=== PATIENT | female | born 1965 | race Caucasian/White ===

== ENCOUNTER → 2016-07-23 | Outpatient (CLI) | payer MEDICARE, BC, OTHER ==
[2016-07-23 15:34] LABS: EKG EKG PERFORMED
[2016-07-23 16:23] LABS: Partial Thromboplastin Time 24.1 sec (22.0-30.0); Prothrombin Time 10.2 sec (9.0-12.0)
[2016-07-23 16:24] LABS: ALT 31 U/L (9-52); AST 23 U/L (14-36); Alkaline Phosphatase 90 U/L (38-126); Anion Gap 10 mmol/L; Appearance,Urine Clear (Clear); Bilirubin,Urine Negative (Negative); Blood Urea Nitrogen 15 mg/dL (7-17); Calcium 9.4 mg/dL (8.4-10.2); Carbon Dioxide 27 mmol/L (22-30); Chloride 106 mmol/L (98-107); Glucose 96 mg/dL (74-99); Glucose,Urine (UA) Negative (Negative); Ketones,Urine Negative (Negative); Leukocyte Esterase,Urine Negative (Negative); Mucus,Urine Rare /hpf; Nitrite,Urine Negative (Negative); Non-African American GFR(MDRD) >60 (>60 ml/min/1.73 sqM); PH, Urine 5.5 (5.0-8.0); Particle Count 1393; Potassium 4.4 mmol/L (3.5-5.1); Protein,Urine Negative (Negative); RBC,Urine <1 /hpf (0-5); Sodium 143 mmol/L (137-145); Specific Gravity,Urine 1.017 (1.001-1.035); Squamous Epithelial Cell,Urine 2 /hpf (0-4); Total Bilirubin 0.2 mg/dL (0.2-1.3); Total Protein 7.1 g/dL (6.3-8.2); UA Billing (MACRO vs. MICRO) MICRO; Urobilinogen,Urine <2.0 mg/dL (<2.0); WBC,Urine 1 /hpf (0-5)
[2016-07-23 16:25] LABS: Basophils # (A) 0.1 k/uL (0-0.2); Basophils % (A) 2 %; CH 29.8; CHCM 32.6; Eosinophils # (A) 0.3 k/uL (0-0.7); Eosinophils % (A) 5 %; HCT 40.3 % (34.0-46.0); HDW 2.25; Luc # (Auto) 0.08; Luc % (Auto) 2; Lymphocytes # (A) 1.8 k/uL (1.0-4.8); Lymphocytes % (A) 34 %; MCH 29.5 pg (25.0-35.0); MCHC 32.2 g/dL (31.0-37.0); MCV 91.6 fL (80.0-100.0); Mean Platelet Volume 7.8; Monocytes # (A) 0.3 k/uL (0-1.0); Monocytes % (A) 6 %; Neutrophils # (A) 2.8 k/uL (1.3-7.7); Neutrophils % (A) 52 %; RDW 13.5 % (11.5-15.5); WBC 5.5 k/uL (3.8-10.6); WBC (Perox) 5.37
== END | disposition home or self-care (01) ==
LOC: LABWHC1 15:25
PROVIDERS: ATTEND Orthopaedic Surgery
DX: Z01.810 Encounter for preprocedural cardiovascular examination (principal)
CPT/HCPCS: 36415; 80053; 81001; 85025; 85610; 85730; 93005

== ENCOUNTER 2016-07-26 10:50 | Inpatient (IN) | payer MEDICARE, OTHER ==
[2016-07-16 10:47] VITALS: BMI 29.9
[~2016-07-26 10:50] MED LIST: ACETAMINOPHEN TAB 500 MG TAB PO ONE; FAMOTIDINE 20 MG/2 ML VIAL IV PRN; HYDROmorphone 1 MG/ML 1 ML SYRINGE IVP PRN; LACTATED RINGERS 1,000 ML IV SCH; LIDOCAINE 1% 20 ML VIAL (10MG/ML) FOR IV START INTRADERMA PRN; MELOXICAM 7.5 MG TAB PO ONE; MIDAZOLAM 2 MG/2 ML VIAL IV PRN; ONDANSETRON 4 MG/2 ML VIAL IVP PRN; TRANEXAMIC ACID 1,000 MG in SODIUM CHLORIDE 0.9% 100 ML IVPB ONE
[2016-07-26] MEDS ORDERED: GLYCOPYRROLATE 0.2 MG/ML 2 ML VIAL ONE (12:37)
[2016-07-26] MEDS ORDERED: MIDAZOLAM 2 MG/2 ML VIAL ONE (12:37)
[2016-07-26] MEDS ORDERED: SODIUM CHLORIDE 0.9% IRRIG 3,000 ML BAG IRRIGATION ONE (12:37)
[2016-07-26] MEDS ORDERED: PHENYLEPHRINE-0.9% NACL SYG 1 MG/10 ML SYRINGE ONE (12:37)
[2016-07-26] MEDS ORDERED: ceFAZolin 10 GM VIAL IVPB ONE (12:37)
[2016-07-26] MEDS ORDERED: ESMOLOL 100 MG/10 ML VIAL ONE (12:37)
[2016-07-26] MEDS ORDERED: PROPOFOL 10 MG/ML 20 ML VIAL IV ONE (12:37)
[2016-07-26] MEDS ORDERED: LACTATED RINGERS 1,000 ML BAG IV ONE (12:37)
[2016-07-26] MEDS ORDERED: TRANEXAMIC ACID 1,000 MG/10 ML VIAL ONE (12:37)
[2016-07-26] MEDS ORDERED: fentaNYL (PF) 50 MCG/ML 2 ML AMP ONE (12:37)
[2016-07-26] MEDS ORDERED: ceFAZolin 1,000 MG VIAL ONE (12:37)
[2016-07-26] MEDS ORDERED: ePHEDrine 50 MG/ML 1 ML AMP ONE (12:37)
[2016-07-26] MEDS ORDERED: SODIUM CHLORIDE 0.9% 100 ML BAG ONE ×2 (12:37)
[2016-07-26] MEDS ORDERED: ROPIVACAINE 246.25 MG, EPINEPHrine 0.5 MG, KETOROLAC 30 MG, cloNIDine HCL/PF 80 MCG, WA... MISCELLANE ONE ×5 (12:44)
[2016-07-26] MEDS: ceFAZolin 2 GM in SODIUM CHLORIDE 0.9% 100 ML IVPB ONE ×2 (12:45→18:22)
[2016-07-26] MEDS: ceFAZolin 3,000 MG in SODIUM CHLORIDE 0.9% IRRIGATIO 3,000 ML IRRIGATION ONE ×2 (13:34→18:23)
[2016-07-26] MEDS: LACTATED RINGERS 1,000 ML IV ONE ×2 (13:55→18:23)
[2016-07-26] MEDS ORDERED: HYDROmorphone 1 MG/ML 1 ML SYRINGE IVP PRN ×3 (15:20)
[2016-07-26] MEDS ORDERED: HYDROcodone/APAP 5-325MG 1 EACH TAB PO PRN (15:20)
[2016-07-26] MEDS ORDERED: MAGNESIUM HYDROXIDE 2,400 MG/10 ML CUP PO PRN (15:20)
[2016-07-26] MEDS ORDERED: hydrOXYzine PAMOATE 25 MG CAP PO PRN (15:20)
[2016-07-26] MEDS ORDERED: ACETAMINOPHEN TAB 325 MG TAB PO PRN (15:20)
[2016-07-26] MEDS ORDERED: NA PHOS,M-B/NA PHOS,DI-BA 133 ML ENEMA RECTAL PRN (15:20)
[2016-07-26] MEDS ORDERED: BISACODYL 10 MG SUPP RECTAL PRN (15:20)
[2016-07-26] MEDS ORDERED: NALOXONE 0.4 MG/ML 1 ML VIAL IV PRN (15:20)
[2016-07-26 15:42] VITALS: RESP 16
--- NOTE | 2016-07-26 16:10 | XR ---
EXAMINATION TYPE: XR knee limited RT DATE OF EXAM: 07/26/2016 3:44 PM CLINICAL HISTORY: Right knee pain and arthritis status post total knee replacement. TECHNIQUE: Portable AP and crosstable lateral views of the right knee are obtained immediately posto peratively. COMPARISON: None FINDINGS: Metallic hardware from total right knee arthroplasty is seen and appears satisfactory in a lignment and position. There is evidence of recent surgery with diffuse subcutaneous gas and soft ti ssue swelling drain noted. IMPRESSION: METALLIC HARDWARE FROM TOTAL RIGHT KNEE ARTHROPLASTY IS SATISFACTORY IN ALIGNMENT.
[2016-07-26] MEDS: LACTATED RINGERS 1,000 ML IV SCH ×2 (16:30→22:31)
--- NOTE | 2016-07-26 17:17 | P.OP ---
Date of Procedure: 07/26/16 Procedure(s) Performed: PREOPERATIVE DIAGNOSIS: Right knee severe osteoarthritis with genu varum POSTOPERATIVE DIAGNOSIS: Right knee severe osteoarthritis with genu varum OPERATION: Right knee cemented total replacement arthroplasty. ANESTHESIA: Spinal ESTIMATED BLOOD LOSS: 100 ml. SATELLITE TELEVISION INSTALLER: Elvi Cervantes PA-C (assistance with: patient positioning, retraction, exposure, hemostasis, leg positioning, implantation, irrigation, closure, dressing) COMPLICATIONS: None apparent. COMPONENTS IMPLANTED: Persona system from [employer] INDICATIONS: Ms. Lanier is a 51-year-old female with a history of right knee osteoarthritis. The patient's knee is end-stage, and conservative management has failed. The operation of knee replacement has been discussed at length in the office, as well as potential risks and complications. These are inclusive of, but not limited to: bleeding, infection, scarring, discomfort, blood vessel and nerve damage, need for further surgery, failure to relieve symptoms, persistence, recurrence, or worsening of problems, loosening, dislocation, wear , blood clot, pulmonary embolism, , gait dysfunction, stiffness, and other risks as discussed in the office. The patient elects to proceed and the consent form has been signed. PROCEDURE: The patient was taken to the operating room and positioned on the operating room table in the supine position. Anesthesia was initiated. Care was taken to make sure that all pressure points were adequately padded. The operative lower extremity was prepped and draped in the usual aseptic fashion using ChloraPrep. Ioban drape was used for the case and the patient received intravenous antibiotics within one hour of the incision. A pneumotourniquet and leg guerrero were used for the case. The limb was exsanguinated with an Esmarch bandage and the tourniquet was inflated to 350 mmHg. Time-out was called confirming the patient's identity, side, procedure and administration of antibiotics. The incision was then created midline directly over the knee, carried down through skin and into the subcutaneous tissues and down to fascia. Full thickness subcutaneous medial flap was developed. Medial parapatellar arthrotomy was performed and the interior of the knee was inspected. Significant patella also was noted. There was end-stage osteoarthritis of the knee with a mild to moderate genu varum type deformity. The fat pad was excised and proximal medial release on the tibia was completed using meticulous dissection and a curved osteotome. The anterior cruciate ligament was taken down. Note was made of significant attrition of the anterior and significant degenerative appearance of the posterior cruciate ligaments. The exposure was excellent. The knee was flexed 90 degrees and the patella was everted. A spot was chosen on the femur approximately 1 cm anterior to the posterior cruciate ligament insertion and an intramedullary hole was created within the femur. The intramedullary guide was then set to 5 degrees of valgus. The distal cutting block was attached and pinned into position. An appropriate amount of distal femoral resection was set. The oscillating saw was then used to make the distal femoral cut. This cut was confirmed to be flat with the flat end of an osteotome. The retractors were placed around the tibia and the tibial surface was addressed. The angle and depth of resection was adjusted using an extramedullary cutting guide. The guide had a built-in 3 degree posterior slope cut. Once the cutting guide was adjusted appropriately and in line with the axis of the tibia and confirmed to be in good position in relation to the second metatarsal and transmalleolar axis, the tibial cut was then created with protection of the posterior neurovascular structures and the collateral ligaments. The tibial cut surface was removed and sized. Femoral sizing was then accomplished using anterior referencing. Note was made of small anterior to posterior dimension of the distal femur, which resulted in an abnormally low measurement on anterior referencing.. Care was taken to analyze the posterior condyles for signs of deficiency or severe wear, and adjustments to the guide were made, as appropriate, to prepare for a size 4 component. 3 degree external rotation pins were placed. The cutting jig for the femur was applied to these pins. The planned cuts were further analyzed prior to performing them with the oscillating saw. No femoral notching was produced. Bone fragments were removed and the cut surfaces were finished, as necessary, with a reciprocating saw. Spacer block technique was then used to confirm that the flexion and extension gaps were equal. Soft tissue releases and adjustment of the tibial and/or femoral cuts were made, as necessary, until the gaps were equal. This included release of the posterior cruciate ligament, which was tight in this patient and , if left unreleased, would have resulted in poor kinematics and possibly early loosening. The femur was then further finished for a posterior cruciate ligament substituting component. Patellar resurfacing was performed using a reamer. The size of the required patellar component was estimated and the patellar surface was then reamed down to a residual thickness which would recreate the [place] thickness with the component. The placement of the patellar component was influenced by the degree of patellar subluxation, if any, noted on the preoperative x-rays. Prior to placing trial components, anesthetic solution consisting of ropivicaine with epinephrine, ketorolac, and clonidine was injected carefully and methodically in a grid pattern using aspiration technique into the soft tissue around the knee circumferentially, starting with the deeper tissues first and progressing to fascia, and then finally the skin/subcutaneous tissue. Particular care was taken when injecting the posterior capsule. The trial components were inserted. The tibial tray was allowed to self center and the patella was noted to track very well. The position of the tibial component was marked and the tibia was then finished for a stemmed tibial component. Cement was mixed on the back table and applied to the final components. Trial components were removed and the cut surfaces of the bone were pulse lavaged thoroughly and dried. Cement was then applied to the tibial surface and pressurized into the surface using finger pressurization technique. The tibial component was then applied and excess cement was removed after it was impacted securely and noted to be flush with the cut surface. In similar fashion, the cement was applied to the cut femoral surface, pressurized in using finger pressurization and the component was impacted into place. Excess cement was removed. The polyethylene spacer was then implanted and locked into position. The patellar component was then applied in similar technique and a patellar clamp was used to hold the patella in place as the cement hardened. Once the cement had fully hardened, the knee was reinspected. Any other cement extrusion was removed and final kinematic testing showed range of motion from 0 to 130 degrees with excellent stability, both medially and laterally and appropriate alignment of the leg. Patellar tracking was excellent. The knee was then thoroughly pulse lavaged with normal saline. The tourniquet was deflated and hemostasis was obtained with electrocautery and IV tranexamic acid, 1 g given at the start of the operation and 1 g at the start of closure. Closure was with #2 Ethibond in the fascia/capsule and supplemented with #2 Quill, 2-0 Vicryl suture was used for the subcutaneous tissues and 3-0 Quill for the skin. Dermabond/Steri-Strips were then applied. A lightly compressive dressing was applied using Webril and an Bassem wrap. The patient was then transferred to [facility] and taken to the recovery room in stable condition. Sponge and needle counts were correct.
[2016-07-26] MEDS: ARIPiprazole 10 MG TAB PO SCH (20:17)
[2016-07-26] MEDS: ceFAZolin 2 GM in SODIUM CHLORIDE 0.9% 100 ML IVPB SCH (20:17)
[2016-07-26] MEDS: ASPIRIN 325 MG TAB PO SCH (20:18)
[2016-07-26] MEDS: SENNOSIDES-DOCUSATE SODIUM 1 EACH TAB PO SCH (20:18)
[2016-07-26] MEDS ORDERED: TEMAZEPAM 15 MG CAP PO PRN (22:00)
[2016-07-27] MEDS: ceFAZolin 2 GM in SODIUM CHLORIDE 0.9% 100 ML IVPB SCH (03:27)
[2016-07-27] MEDS: HYDROcodone/APAP 5-325MG 1 EACH TAB PO PRN ×2 (03:53→13:35)
[2016-07-27 08:34] LABS: Basophils % (A) 1 %; CH 29.7; CHCM 32.7; Eosinophils # (A) 0.1 k/uL (0-0.7); Eosinophils % (A) 2 %; HCT 34.1 % (34.0-46.0); HDW 2.28; HGB 10.8 gm/dL (11.4-16.0); Luc # (Auto) 0.08; Luc % (Auto) 1; Lymphocytes # (A) 1.4 k/uL (1.0-4.8); Lymphocytes % (A) 17 %; MCH 28.9 pg (25.0-35.0); MCHC 31.7 g/dL (31.0-37.0); MCV 91.2 fL (80.0-100.0); Mean Platelet Volume 7.9; Monocytes # (A) 0.4 k/uL (0-1.0); Monocytes % (A) 5 %; Neutrophils # (A) 6.2 k/uL (1.3-7.7); Neutrophils % (A) 75 %; RBC 3.75 m/uL (3.80-5.40); RDW 13.9 % (11.5-15.5); WBC 8.3 k/uL (3.8-10.6); WBC (Perox) 8.55
[2016-07-27] MEDS: ONDANSETRON 4 MG/2 ML VIAL IVP PRN (08:34)
[2016-07-27] MEDS: MELOXICAM 7.5 MG TAB PO SCH (09:31)
[2016-07-27] MEDS: ASPIRIN 325 MG TAB PO SCH ×2 (09:31→21:06)
[2016-07-27] MEDS: MULTIVITAMINS, THERA 1 EACH TAB PO SCH (09:31)
--- NOTE | 2016-07-27 09:56 | P.PN ---
Subjective Principal diagnosis: Status post right total knee arthroplasty This is a 51 year-old female post right total knee arthroplasty. This is post- op day 1. The patient was evaluated in the recliner chair at the bedside today. There is a communication barrier due to the patient being deaf. No process assistant at the bedside at this time. Objective - Vital Signs Vital signs: Vital Signs Temp 98.9 F 07/27/16 07:35 Pulse 81 07/27/16 09:35 Resp 16 07/27/16 07:35 BP 94/56 07/27/16 09:35 Pulse Ox 95 07/27/16 07:35 Intake & Output 07/26/16 07/27/16 07/27/16 18:59 06:59 18:59 Intake Total 2052 240 Output Total 250 2450 150 Balance 1802 -2450 90 Intake: IV 1452 Oral 600 240 Output: Urine 150 2450 150 Uretheral (Schmidt) 2450 150 Estimated Blood Loss 100 Other: Voiding Method Indwelling Catheter Indwelling Catheter - Exam The patient does not appear in acute distress. Alert and orientated x3. Dressing is clean dry and intact. Incision appears fine with no erythema or active drainage. Calf is soft and nontender. Good foot and ankle motion without difficulty. Sensation and circulatory status is intact. - Labs CBC & Chem 7: 07/27/16 07:55 Labs: Abnormal Lab Results - Last 24 Hours (Table) 07/27/16 Range/Units 07:55 RBC 3.75 L (3.80-5.40) m/uL Hgb 10.8 L (11.4-16.0) gm/dL Assessment and Plan (1) Primary osteoarthritis of right knee Status: Acute (2) Status post right knee replacement Status: Acute Plan: 1. Continue pain control 2. Anticoagulation with Aspirin 3. Continue physical therapy and ambulation 4. Anticipate discharge home with homecare in the next 1-2 days.
[2016-07-27] MEDS: LACTATED RINGERS 1,000 ML IV SCH (14:51)
--- NOTE | 2016-07-27 18:01 | CONS ---
DATE OF CONSULTATION: REASON FOR CONSULTATION: Postoperative hypotension management. Patient is a 51-year-old female admitted for right knee elective arthroplasty for genu varum deformity and osteoarthritis. Patient is clinically doing well. Patient is mildly hypotensive. Denied any lightheadedness. Denied any shortness of breath, fever, chills. Patient is mildly tachycardic because of the intravascular volume depletion from surgery and fluid shift from the surgery as well as pain medications. Patient did not pass gas yet. REVIEW OF SYSTEMS: CONSTITUTIONAL: No fever, no malaise, no fatigue. HEENT: No recent visual problems or hearing problems. Denied any sore throat. CARDIOVASCULAR: No chest pain, orthopnea, PND, no palpitations, no syncope. PULMONARY: No shortness of breath, no cough, no hemoptysis. GASTROINTESTINAL: No diarrhea, no nausea, no vomiting, no abdominal pain. Normoactive bowel sounds. NEUROLOGICAL: No headaches, no weakness, no numbness. HEMATOLOGICAL: Denies any bleeding or petechiae. GENITOURINARY: Denies any burning micturition, frequency, or urgency. MUSCULOSKELETAL/RHEUMATOLOGICAL: Denies any joint pain, swelling, or any muscle pain. ENDOCRINE: Denies any polyuria or polydipsia. The rest of the 14 point review of systems is negative. PAST MEDICAL HISTORY: 1. Deaf mutism. 2. Osteoarthritis. 3. Tubal ligation surgery. 4. Orthopedic surgery. SOCIAL HISTORY: Denied any smoking, alcohol abuse or any drug abuse. FAMILY HISTORY: Significant for congestive heart failure and osteoarthritis. Home medications include: 1. Abilify. 2. Aspirin. 3. Senna. PHYSICAL EXAMINATION: VITAL SIGNS: Temperature 98.8, pulse of 68, respiratory rate of 16. Blood pressure is 99/50. GENERAL: The patient is alert and oriented x3, not in any acute distress. Well developed, well nourished. HEENT: Pupils are round and equally reacting to light. EOMI. No scleral icterus. No conjunctival pallor. Normocephalic, atraumatic. No pharyngeal erythema. No thyromegaly. CARDIOVASCULAR: S1 and S2 present. No murmurs, rubs, or gallops. PULMONARY: Chest is clear to auscultation, no wheezing or crackles. ABDOMEN: Soft, nontender, nondistended, normoactive bowel sounds. No palpable organomegaly. MUSCULOSKELETAL: Defer to Orthopedic Surgery. EXTREMITIES: No cyanosis, clubbing, or pedal edema. NEUROLOGICAL: Gross neurological examination did not reveal any focal deficits. SKIN: No rashes. ASSESSMENT AND PLAN: 1. Postoperative hypotension secondary to pain medications and blood loss from surgery. Patient is on 100 mL of lactated Ringer's, which is appropriate. 2. Tachycardia due to above-mentioned reasons. 3. Depression. Continue with Abilify. 4. Right knee arthroplasty. DVT and pain management as per primary service. Thank you for letting me participate in this patient's care. Will continue to follow the patient with you. Patient's primary care physician is Dr. Jing Goode.
[2016-07-27] MEDS: SENNOSIDES-DOCUSATE SODIUM 1 EACH TAB PO SCH (21:06)
[2016-07-27] MEDS: ARIPiprazole 10 MG TAB PO SCH (21:06)
[2016-07-28] MEDS: HYDROcodone/APAP 5-325MG 1 EACH TAB PO PRN ×2 (00:23→07:21)
[2016-07-28] MEDS: ONDANSETRON 4 MG/2 ML VIAL IVP PRN (03:26)
[2016-07-28] MEDS: LACTATED RINGERS 1,000 ML IV SCH ×2 (03:40→09:46)
[2016-07-28 07:30] VITALS: BP 109/58; PULSE 95; TEMP 98.9
--- NOTE | 2016-07-28 08:36 | P.DS ---
Providers Date of admission: 07/26/16 10:50 Expected date of discharge: 07/28/16 Attending physician: Bruno Stubbs Consults: 07/26/16 15:20 Consult Physician Routine Consulting Provider: Jennyfer Schroeder Consult Reason/Comments: medical management Do you want consulting provider notified?: Yes Primary care physician: Jing Goode - Discharge Diagnosis(es) (1) Primary osteoarthritis of right knee Current Visit: Yes Status: Acute (2) Status post right knee replacement Current Visit: Yes Status: Acute Hospital Course: This is a 51-year-old female who was last seen with complaint of continued right knee pain. The patient has a known history of degenerative arthritis of the right knee and presents to discuss surgical options. After discussion and consideration the patient elects to proceed with total right knee arthroplasty. The patient is seen preoperatively by Dr. Goode and cleared for surgery. The patient is admitted to [facility] for total right knee arthroplasty. The procedures performed without complication or sequelae. Patient is doing well postoperatively. She does have increased swelling on postoperative day #2 with a small blister about the lateral aspect of the knee. There is minimal drainage from the incision. Vital signs are stable at discharge. Labs are stable at discharge. the patient is ambulating well with walker with minimal assistance. Venous Doppler is ordered to rule out DVT. If the Doppler is negative she may be discharged to home today. The patient is discharged to home on postop day #2 pending medical clearance. Please see orders and refer to the med rec for accurate list of medications. Plan - Discharge Summary New Discharge Prescriptions: Aspirin 325 mg PO BID #120 HYDROcodone/APAP 5-325MG [[place] 5] 1 - 2 each PO Q4-6H PRN #60 tab PRN Reason: Pain Sennosides-Docusate Sodium [Senokot-S] 1 tab PO BID #60 tablet Discharge Medication List ARIPiprazole [Abilify] 10 mg PO HS 07/26/16 [History] Aspirin 325 mg PO BID #120 07/26/16 [Rx] HYDROcodone/APAP 5-325MG [[place] 5] 1 - 2 each PO Q4-6H PRN #60 tab 07/26/16 [Rx] Sennosides-Docusate Sodium [Senokot-S] 1 tab PO BID #60 tablet 07/26/16 [Rx] Follow up Appointment(s)/Referral(s): Bruno Stubbs MD [STAFF PHYSICIAN] - 2 Weeks Activity/Diet/Wound Care/Special Instructions: Walker - CPM - Keep compressive bandage on for the next 24 hours. May shower if no drainage from incision. CPM 5-6h daily. WBAT w walker Discharge Disposition: HOME WITH HOME HEALTH SERVICES
[2016-07-28] MEDS: ASPIRIN 325 MG TAB PO SCH (08:46)
[2016-07-28] MEDS: MELOXICAM 7.5 MG TAB PO SCH (08:47)
[2016-07-28] MEDS: MULTIVITAMINS, THERA 1 EACH TAB PO SCH (08:47)
--- NOTE | 2016-07-28 09:29 | US ---
EXAMINATION TYPE: US venous doppler duplex LE RT DATE OF EXAM: 07/28/2016 9:14 AM COMPARISON: NONE CLINICAL HISTORY: Right total knee x 2 days, no h/o dvt. SIDE PERFORMED: Right VESSELS IMAGED: External Iliac Vein (EIV) Common Femoral Vein Deep Femoral Vein Greater Saphenous Vein * Femoral Vein Popliteal Vein - unable to do compression due to hard, swollen knee and patient was having difficulty with pressure behind the knee Small Saphenous Vein * Proximal Calf Veins (* superficial vessels) Right Leg: Appears negative for DVT IMPRESSION: 1. No evidence of DVT.
== END 2016-07-28 13:52 | disposition home health service (06) | DRG 470 ==
LOC: 2ORMAIN 10:50 → 3SUR 15:36
PROVIDERS: ADMIT Orthopaedic Surgery; ATTEND Orthopaedic Surgery
PROC: 0SRC0J9 Replacement of Right Knee Joint with Synthetic Substitute, Cemented, Open Approach (ICD-10-PCS; principal; 2016-07-26 12:30)
DX: M17.11 Unilateral primary osteoarthritis, right knee (principal); I95.9 Hypotension, unspecified; F32.9 Major depressive disorder, single episode, unspecified; H91.3 Deaf nonspeaking, not elsewhere classified; E86.9 Volume depletion, unspecified; M21.161 Varus deformity, not elsewhere classified, right knee; Z82.49 Family history of ischemic heart disease and other diseases of the circulatory system; Z79.82 Long term (current) use of aspirin; Z79.899 Other long term (current) drug therapy
CPT/HCPCS: 36415; 80053; 81001; 85025; 85610; 85730; 88300; 93005

== ENCOUNTER 2017-07-05 17:07 | Emergency (ER) | payer MEDICARE, OTHER ==
[2017-07-05 17:29] VITALS: RESP 18; TEMP 97.6
[2017-07-05] MEDS ORDERED: IPRATROPIUM-ALBUTEROL 3 ML NEB INHALATION STA (18:40)
--- NOTE | 2017-07-05 18:44 | ED ---
General Adult HPI - General Chief complaint: Upper Respiratory Infection Stated complaint: Cough Time Seen by Provider: 07/05/17 18:31 Source: family, RN notes reviewed Mode of arrival: ambulatory Limitations: language barrier - History of Present Illness Initial comments: This is a 52-year-old female who presents to the emergency department with chief complaint of cough. Patient is unable to hear or speak. Patient is able to read and write. She is accompanied by her sister who is also her caregiver. Her sister states that patient does not have a history of COPD but had asthma years ago. She denies any heart disease. She states that for the past month patient has been having intermittent productive cough and congestion. She states that over the past couple of days the cough has gotten worse. She states that patient has been coughing up yellow sputum. Patient's sister also states that she has been complaining of a sore throat. Denies chest pain, shortness of breath, fever or chills, abdominal pain, nausea or vomiting, diarrhea or constipation, urinary symptoms. - Related Data Home Medications Medication Instructions Recorded Confirmed ARIPiprazole [Abilify] 10 mg PO HS 07/26/16 07/26/16 Previous Rx's Medication Instructions Recorded Aspirin 325 mg PO BID #120 07/26/16 HYDROcodone/APAP 5-325MG [[place] 5] 1 - 2 each PO Q4-6H PRN #60 tab 07/26/16 Sennosides-Docusate Sodium 1 tab PO BID #60 tablet 07/26/16 [Senokot-S] Albuterol Inhaler [Ventolin Hfa 1 - 2 puff INHALATION Q6HR 7 Days 07/05/17 Inhaler] #1 inhaler Azithromycin [Zithromax Z-pack] 0 mg PO DIRECTED #6 tab 07/05/17 Allergies Allergy/AdvReac Type Severity Reaction Status Date / Time No Known Allergies Allergy Verified 07/05/17 17:29 Review of Systems ROS Statement: Those systems with pertinent positive or pertinent negative responses have been documented in the HPI. ROS Other: All systems not noted in ROS Statement are negative. Past Medical History Past Medical History: Hearing Disorder / Deafness, Osteoarthritis (OA) History of Any Multi-Drug Resistant Organisms: None Reported Past Surgical History: Orthopedic Surgery, Tubal Ligation Additional Past Surgical History / Comment(s): RT LEG SX CHILD. RT KNEE SCOPE, 07-26-16 TOTAL RT KNEE Past Anesthesia/Blood Transfusion Reactions: No Reported Reaction Past Psychological History: Depression Smoking Status: Never smoker Past Alcohol Use History: None Reported Past Drug Use History: None Reported - Past Family History Mother Family Medical History: No Reported History, Congestive Heart Failure (CHF), Osteoarthritis (OA) Father Family Medical History: Congestive Heart Failure (CHF) General Exam - General Exam Comments Initial Comments: General: Awake and alert, well-developed; in no apparent distress. Pleasant and cooperative. HEENT: Head atraumatic, normocephalic. Pupils are equal, round and reactive to light. Extraocular movements intact. Oropharynx moist without erythema or exudate. Neck: Supple. Normal ROM. Cardiovascular: Regular rate and rhythm. No murmurs, rubs or gallops. Chest symmetrical. Respiratory: Diffuse wheezing throughout all lung smith. No rales or rhonchi. Normal respiratory effort with no use of accessory muscles. Abdomen: Soft, non-tender, non-distended. No rigidity, rebound or guarding. Normal bowel sounds in all 4 quadrants. Musculoskeletal: Normal ROM, no tenderness bilateral upper and lower extremities. No pedal edema. Skin: [place], warm and dry without rashes or lesions. Neurological: Alert and oriented x3. CN II-XII grossly intact. No focal neuro deficits. Psychiatric: Normal mood and affect. No overt signs of depression or anxiety noted. Limitations: language barrier Course Vital Signs 07/05/17 07/05/17 07/05/17 17:25 19:00 19:08 Temperature 97.6 F Pulse Rate 83 70 63 Respiratory 18 18 Rate Blood Pressure 141/68 110/57 O2 Sat by Pulse 97 100 Oximetry 07/05/17 19:14 Temperature Pulse Rate 68 Respiratory Rate Blood Pressure O2 Sat by Pulse Oximetry Medical Decision Making - Medical Decision Making This is a 52-year-old female who presents to the emergency department with chief complaint of cough. Chest x-ray revealed peribronchial cuffing suggestive of reactive airway disease from acute asthma exacerbation. On examination, patient had diffuse wheezing throughout all lung smith. While in the emergency Department patient received a breathing treatment. CBC and CMP were within normal limits. Patient will be discharged home with prescriptions for azithromycin and an albuterol inhaler. Patient's transportation dispatch manager was informed of findings and plan. She is in agreement moist understanding. All questions were answered. - Lab Data Result diagrams: 07/05/17 19:26 07/05/17 19:26 Lab Results 07/05/17 07/05/17 Range/Units 19:26 19:26 WBC 7.7 (3.8-10.6) k/uL RBC 4.71 (3.80-5.40) m/uL Hgb 13.5 (11.4-16.0) gm/dL Hct 40.9 (34.0-46.0) % MCV 87.0 (80.0-100.0) fL MCH 28.8 (25.0-35.0) pg MCHC 33.1 (31.0-37.0) g/dL RDW 13.1 (11.5-15.5) % Plt Count 240 (150-450) k/uL Neutrophils % 44 % Lymphocytes % 43 % Monocytes % 4 % Eosinophils % 7 % Basophils % 1 % Neutrophils # 3.4 (1.3-7.7) k/uL Lymphocytes # 3.3 (1.0-4.8) k/uL Monocytes # 0.3 (0-1.0) k/uL Eosinophils # 0.5 (0-0.7) k/uL Basophils # 0.1 (0-0.2) k/uL Sodium 142 (137-145) mmol/L Potassium 4.1 (3.5-5.1) mmol/L Chloride 105 (98-107) mmol/L Carbon Dioxide 26 (22-30) mmol/L Anion Gap 11 mmol/L BUN 14 (7-17) mg/dL Creatinine 0.80 (0.52-1.04) mg/dL Est GFR (MDRD) Af Amer >60 (>60 ml/min/1.73 sqM) Est GFR (MDRD) Non-Af >60 (>60 ml/min/1.73 sqM) Glucose 90 (74-99) mg/dL Calcium 9.7 (8.4-10.2) mg/dL Total Bilirubin 0.3 (0.2-1.3) mg/dL AST 26 (14-36) U/L ALT 38 (9-52) U/L Alkaline Phosphatase 101 (38-126) U/L Total Protein 7.1 (6.3-8.2) g/dL Albumin 3.9 (3.5-5.0) g/dL - Radiology Data Radiology results: report reviewed Chest x-ray impression: No suspicious peripheral airspace opacity. Poor inspiration with central perihilar peribronchial cuffing is suggestive of reactive airway disease possibly from acute asthma exacerbation, correlate clinically. Disposition Clinical Impression: Asthmatic bronchitis Disposition: HOME SELF-CARE Condition: Good Instructions: Asthma (ED), Acute Bronchitis (ED) Additional Instructions: Please take medications as prescribed. Please follow up with primary care provider within 1-2 days. Return to emergency department if symptoms should worsen or any concerns arise. Prescriptions: Albuterol Inhaler [Ventolin Hfa Inhaler] 1 - 2 puff INHALATION Q6HR 7 Days #1 inhaler Azithromycin [Zithromax Z-pack] 0 mg PO DIRECTED #6 tab Referrals: Jing Goode MD [Primary Care Provider] - 1-2 days Time of Disposition: 19:59
--- NOTE | 2017-07-05 18:56 | XR ---
EXAMINATION TYPE: XR chest 2V DATE OF EXAM: 07/05/2017 COMPARISON: NONE HISTORY: Cough and wheeze TECHNIQUE: Frontal and lateral views of the chest are obtained. FINDINGS: For inspiration is present. There is no focal air space opacity, pleural effusion, or pneu mothorax seen. There is central perihilar peribronchial cuffing The cardiac silhouette size is within normal limits. The osseous structures are intact. IMPRESSION: No suspicious peripheral airspace opacity. Poor inspiration with central perihilar perib ronchial cuffing is suggestive of reactive airway disease possibly from acute asthma exacerbation, co rrelate clinically.
[2017-07-05 19:09] VITALS: BP 110/57
[2017-07-05 19:15] VITALS: PULSE 68
[2017-07-05 19:40] LABS: Basophils # (A) 0.1 k/uL (0-0.2); Basophils % (A) 1 %; CH 29.6; CHCM 34.2; Eosinophils # (A) 0.5 k/uL (0-0.7); Eosinophils % (A) 7 %; HCT 40.9 % (34.0-46.0); HDW 2.35; HGB 13.5 gm/dL (11.4-16.0); Luc # (Auto) 0.14; Luc % (Auto) 2; Lymphocytes # (A) 3.3 k/uL (1.0-4.8); Lymphocytes % (A) 43 %; MCH 28.8 pg (25.0-35.0); MCHC 33.1 g/dL (31.0-37.0); Mean Platelet Volume 7.1; Monocytes # (A) 0.3 k/uL (0-1.0); Monocytes % (A) 4 %; Neutrophils # (A) 3.4 k/uL (1.3-7.7); Neutrophils % (A) 44 %; RBC 4.71 m/uL (3.80-5.40); RDW 13.1 % (11.5-15.5); WBC 7.7 k/uL (3.8-10.6)
[2017-07-05 19:51] LABS: ALT 38 U/L (9-52); AST 26 U/L (14-36); Alkaline Phosphatase 101 U/L (38-126); Anion Gap 11 mmol/L; Blood Urea Nitrogen 14 mg/dL (7-17); Calcium 9.7 mg/dL (8.4-10.2); Carbon Dioxide 26 mmol/L (22-30); Chloride 105 mmol/L (98-107); Glucose 90 mg/dL (74-99); Non-African American GFR(MDRD) >60 (>60 ml/min/1.73 sqM); Potassium 4.1 mmol/L (3.5-5.1); Sodium 142 mmol/L (137-145); Total Bilirubin 0.3 mg/dL (0.2-1.3); Total Protein 7.1 g/dL (6.3-8.2)
== END 2017-07-05 20:06 | disposition home or self-care (01) ==
LOC: EC 17:07
DX: J45.909 Unspecified asthma, uncomplicated (principal); H91.90 Unspecified hearing loss, unspecified ear; F32.9 Major depressive disorder, single episode, unspecified; Z79.899 Other long term (current) drug therapy
CPT/HCPCS: 36415; 71020; 80053; 85025; 94640; 99284

== ENCOUNTER → 2018-11-20 | Outpatient (CLI) | payer MEDICARE, OTHER ==
--- NOTE | 2018-11-21 14:22 | MM ---
Reason for exam: screening (asymptomatic). Last mammogram was performed 4 years and 5 months ago. Physical Findings: A clinical breast exam by your physician is recommended on an annual basis and results should be correlated with mammographic findings. MG 3D Screening Mammo W/Cad Bilateral CC and MLO view(s) were taken. Prior study comparison: July 03, 2014, bilateral MG screening mammo w CAD. August 07, 2012, bilateral digital screening mammo w/CAD. The breast tissue is heterogeneously dense. This may lower the sensitivity of mammography. No significant changes when compared with prior studies. ASSESSMENT: Benign, BI-RAD 2 RECOMMENDATION: Routine screening mammogram of both breasts in 1 year.
== END | disposition home or self-care (01) ==
LOC: RADMAMWWP 10:46
PROVIDERS: ATTEND Internal Medicine
DX: Z12.31 Encounter for screening mammogram for malignant neoplasm of breast (principal)
CPT/HCPCS: 77063; 77067

== ENCOUNTER 2019-09-07 11:14 | Emergency (ER) | payer MEDICARE, OTHER ==
[2019-09-07] MEDS ORDERED: ACETAMINOPHEN TAB 500 MG TAB PO STA (11:24)
[2019-09-07] MEDS ORDERED: IPRATROPIUM-ALBUTEROL 3 ML NEB INHALATION STA (11:25)
[2019-09-07] MEDS ORDERED: IBUPROFEN 600 MG TAB PO STA (11:44)
--- NOTE | 2019-09-07 11:48 | ED ---
URI HPI - General Stated Complaint: cough, vomiting Time Seen by Provider: 09/07/19 11:18 Source: patient, RN notes reviewed Mode of arrival: ambulatory Limitations: language barrier - History of Present Illness Initial Comments: This a 54-year-old female presents emergency Department with sister chief complaint of cough congestion fever. Symptoms started over the last 24 hours. Patient has no significant past medical history. Patient information is limited at this time given that she is deaf and uses sign language. Patient's sister is helping with interpretation until temperature arise. Patient denies chest pain, abdominal pain, headache, neck stiffness. She did have an episode of posttussis emesis but has no complaints of current nausea or vomiting. Patient has not taken Tylenol Motrin no significant lung history. Patient noted have some wheezing. - Related Data Home Medications Medication Instructions Recorded Confirmed ARIPiprazole [Abilify] 10 mg PO HS 07/26/16 07/26/16 Previous Rx's Medication Instructions Recorded Aspirin 325 mg PO BID #120 07/26/16 HYDROcodone/APAP 5-325MG [[place] 5] 1 - 2 each PO Q4-6H PRN #60 tab 07/26/16 Sennosides-Docusate Sodium 1 tab PO BID #60 tablet 07/26/16 [Senokot-S] Albuterol Inhaler [Ventolin Hfa 1 - 2 puff INHALATION Q6HR 7 Days 07/05/17 Inhaler] #1 inhaler Azithromycin [Zithromax Z-pack] 0 mg PO DIRECTED #6 tab 07/05/17 Albuterol Sulfate [Proair Hfa] 1 - 2 puff INHALATION Q4HR PRN #1 09/07/19 inhaler Oseltamivir [Tamiflu] 75 mg PO Q12HR #10 cap 09/07/19 predniSONE 50 mg PO DAILY #5 tab 09/07/19 Allergies Allergy/AdvReac Type Severity Reaction Status Date / Time No Known Allergies Allergy Verified 09/07/19 11:28 Review of Systems ROS Statement: Those systems with pertinent positive or pertinent negative responses have been documented in the HPI. ROS Other: All systems not noted in ROS Statement are negative. Past Medical History Past Medical History: Hearing Disorder / Deafness, Osteoarthritis (OA) History of Any Multi-Drug Resistant Organisms: None Reported Past Surgical History: Orthopedic Surgery, Tubal Ligation Additional Past Surgical History / Comment(s): RT LEG SX CHILD. RT KNEE SCOPE, 07-26-16 TOTAL RT KNEE Past Anesthesia/Blood Transfusion Reactions: No Reported Reaction Past Psychological History: Depression Smoking Status: Never smoker Past Alcohol Use History: None Reported Past Drug Use History: None Reported - Past Family History Mother Family Medical History: No Reported History, Congestive Heart Failure (CHF), Osteoarthritis (OA) Father Family Medical History: Congestive Heart Failure (CHF) General Exam Limitations: language barrier General appearance: alert, in no apparent distress Head exam: Present: atraumatic, normocephalic, normal inspection Eye exam: Present: normal appearance, PERRL, EOMI. Absent: scleral icterus, conjunctival injection, periorbital swelling ENT exam: Present: normal exam, normal oropharynx, mucous membranes moist Neck exam: Present: normal inspection, full ROM. Absent: tenderness, meningismus, lymphadenopathy Respiratory exam: Present: wheezes. Absent: normal lung sounds bilaterally, respiratory distress, rales, rhonchi, stridor Cardiovascular Exam: Present: normal rhythm, tachycardia, normal heart sounds. Absent: systolic murmur, diastolic murmur, rubs, gallop, clicks Neurological exam: Present: alert, oriented X3, CN II-XII intact Skin exam: Present: warm, dry, intact, normal color. Absent: rash Course Vital Signs 09/07/19 09/07/19 09/07/19 11:25 11:49 12:05 Temperature 102.7 F H Pulse Rate 114 H 112 H 108 H Respiratory 28 H 20 Rate Blood Pressure 131/87 O2 Sat by Pulse 98 Oximetry 09/07/19 13:01 Temperature 100.9 F H Pulse Rate 120 H Respiratory 16 Rate Blood Pressure 107/57 O2 Sat by Pulse 94 L Oximetry - Reevaluation(s) Reevaluation #1: 09/07/19 13:04 Patient updated on results. Patient states she feels dramatically improved at this time. Medical Decision Making - Medical Decision Making 54-year-old female presented for cough congestion fever. Patient chest x-ray is unremarkable. Patient did have some mild wheezing which is resolved after breathing treatment. Patient clinically has influenza though she is negative at this time. I did discuss bloodwork patient declines states that she is feeling improved. We'll attempt treatment with Tamiflu, prednisone and Proventil inhaler. Strict return parameters were discussed. - Lab Data Lab Results 09/07/19 Range/Units 11:35 Influenza Type A RNA Not Detected (Not Detectd) Influenza Type B (PCR) Not Detected (Not Detectd) Disposition Clinical Impression: Influenza, Upper respiratory tract infection Disposition: HOME SELF-CARE Condition: Stable Instructions (If sedation given, give patient instructions): Upper Respiratory Infection (ED) Additional Instructions: Please return to the Emergency Department if symptoms worsen or any other concerns. Alternate Tylenol Motrin for fever control. Prescriptions: predniSONE 50 mg PO DAILY #5 tab Albuterol Sulfate [Proair Hfa] 1 - 2 puff INHALATION Q4HR PRN #1 inhaler PRN Reason: difficulty in breathing Oseltamivir [Tamiflu] 75 mg PO Q12HR #10 cap Is patient prescribed a controlled substance at d/c from ED?: No Referrals: Jing Godoe MD [Primary Care Provider] - 1-2 days Time of Disposition: 13:05
--- NOTE | 2019-09-07 11:50 | XR ---
EXAMINATION TYPE: XR chest 2V DATE OF EXAM: 09/07/2019 COMPARISON: Prior chest x-ray 07/05/2017 HISTORY: Fever, cough TECHNIQUE: Frontal and lateral views of the chest are obtained. FINDINGS: Lung volumes are low. Right hemidiaphragm remains elevated. There is bronchial wall thicken ing. Correlate for bronchitis, reactive airways disease. There is thoracic spondylosis. Heart size is stable. No pneumothorax or pleural effusion. No evident airspace disease. IMPRESSION: No acute cardiopulmonary process.
[2019-09-07 13:02] VITALS: BP 107/57; PULSE 120; RESP 16; TEMP 100.9
== END 2019-09-07 13:36 | disposition home or self-care (01) ==
LOC: EC 11:14
DX: J11.1 Influenza due to unidentified influenza virus with other respiratory manifestations (principal); F32.9 Major depressive disorder, single episode, unspecified; Z79.899 Other long term (current) drug therapy
CPT/HCPCS: 71046; 87502; 94640; 99284

== ENCOUNTER → 2021-03-19 | Outpatient (CLI) | payer MEDICARE, OTHER | END | disposition home or self-care (01) | LOC: LABWHC1 14:00 | PROVIDERS: ATTEND Internal Medicine | DX: Z20.822 Contact with and (suspected) exposure to COVID-19 (principal); R05 Cough | CPT/HCPCS: U0003; C9803; U0005 ==

== ENCOUNTER → 2023-10-27 | Outpatient (CLI) | payer MEDICARE, OTHER ==
--- NOTE | 2023-11-01 13:23 | MM ---
Reason for Exam: Screening (asymptomatic). Last mammogram was performed 4 year(s) and 11 month(s) ago. Patient History: Menarche at age 11. First Full-Term at age 23. Risk Values: Sera 5 year model risk: 1.2%. NCI Lifetime model risk: 6.7%. Prior Study Comparison: 08/07/2012 Bilateral Screening Mammogram, [facility]. 07/03/2014 Bilateral Screening Mammogram, [facility]. 11/20/2018 Bilateral Screening Mammogram, [facility]. Tissue Density: There are scattered areas of fibroglandular density. Findings: Analyzed By CAD. Right breast: There is no suspicious group of microcalcifications or new suspicious mass. Left breast: There is no suspicious group of microcalcifications or new suspicious mass. Overall Assessment: Negative, BI-RAD 1 Management: Screening Mammogram of both breasts in [address] [facility] will attempt to contact patient to return for supplemental views and ultrasound if indicated. Patient should continue monthly self-breast exams. A clinical breast exam by your physician is recommended on an annual basis. This exam should not preclude additional follow-up of suspicious palpable abnormalities. Note on Sera scores and lifetime risk: 1. A Sera score greater than 3% is considered moderate risk. If this is the case, consider specialist referral to assess eligibility for a risk reducing agent. 2. If overall lifetime risk for the development of breast cancer is 20% or higher, the patient may qualify for future screening with alternating mammogram and breast MRI. Electronically signed and approved by: Giovanny King DO
== END | disposition home or self-care (01) ==
LOC: RADMAMWWP 16:07
PROVIDERS: ATTEND Internal Medicine
DX: Z12.31 Encounter for screening mammogram for malignant neoplasm of breast (principal)
CPT/HCPCS: 77063; 77067